=== PATIENT | female | born 1950 | race Caucasian/White ===

== ENCOUNTER 2022-11-10 07:27 | Day surgery (SDC) | payer MEDICARE, SELFPAY ==
--- NOTE | 2022-11-09 19:19 | HPE_ITS ---
Assessment and Plan Assessment and plan (1) Nuclear age-related cataract, right eye: Status: Acute Assessment and plan: Assessment: Visually significant cataract of the right eye. Plan: Cataract extraction with lens implantation of the right eye. (2) Cortical age-related cataract, right eye: Status: Acute Assessment and plan: Assessment: Visually significant cataract of the right eye. Plan: Cataract extraction with lens implantation of the right eye History of Present Illness History of Present Illness Chief Complaint: Progressive decreased vision, right eye Narrative: The patient is a 71-year-old lady with history of progressive decreased vision in both eyes at both distance and near. She had a previous stroke with resulting visual field loss. She developed significant bilateral nuclear and cortical cataracts. She was significantly symptomatic from her cataract that she desired cataract surgery and attempt to improve and maximize her vision. She has already undergone cataract surgery in the left eye on 11/01/2022. Postoperatively, she has regained uncorrected visual acuity of 20/25 in the left eye. She now presents for cataract surgery in the right eye. Review of Systems All systems reviewed & are unremarkable except as noted in HPI and below PFSH All Active Problems Nuclear age-related cataract, right eye (Acute) Cortical age-related cataract, right eye (Acute) Medical History Anxiety and depression Cataract Centrilobular emphysema Chronic pain COPD (chronic obstructive pulmonary disease) Fractured pelvis Hypertension Impaired gait and mobility Mixed hyperlipidemia Onychomycosis Opioid dependence with physiological dependence Oxygen dependent Peripheral edema PTSD (post-traumatic stress disorder) Xerosis cutis Surgical History H/O total hip arthroplasty Bilat History of back surgery back surgery r/t broken back x2 History of cataract surgery History of colonoscopy Social History Smoking/Tobacco Use Status: Former Tobacco Use Tobacco: How many years used: 20 Smoking risk assessment performed?: Yes Alcohol Intake: current Alcohol Intake frequency: a few times a week Alcohol type: wine Drug use: Never Substance use type: prescription drug Details: prescribed hydrocodone/acetaminophen Do you feel safe at home: No Do you feel safe in your relationship?: No Additional Social history: lives alone Meds Allergies and Home Medications Allergies Allergy/AdvReac Type Severity Reaction Status Date / Time No Known Allergies Allergy Unverified 11/10/22 08:07 Home Medications Medication Instructions Recorded Confirmed Type aspirin 81 mg tablet,delayed 81 mg PO DAILY 11/09/22 11/10/22 History release calcium carb-vit D3-minerals 600 1 tab PO DAILY 11/09/22 11/10/22 History mg calcium-200 unit tablet citalopram 40 mg tablet 40 mg PO DAILY 11/09/22 11/10/22 History fluticasone furoate 100 1 inh inhalation DAILY 11/09/22 11/10/22 History mcg/actuation blister powder for inhalation furosemide 40 mg tablet 40 mg PO DAILY 11/09/22 11/10/22 History hydrocodone 10 mg-acetaminophen 1 tab PO Q6H PRN 11/09/22 11/10/22 History 325 mg tablet ibuprofen 800 mg tablet 800 mg PO TID PRN 11/09/22 11/10/22 History ketoconazole 2 % topical cream 1 applic topical BID 11/09/22 11/10/22 History lovastatin 40 mg tablet 40 mg PO QPM 11/09/22 11/10/22 History potassium chloride 20 mEq 20 meq PO BID 11/09/22 11/10/22 History tablet,extended release tizanidine 4 mg capsule 4 mg PO QHS PRN 11/09/22 11/10/22 History trazodone 100 mg tablet 100 mg PO QHS PRN 11/09/22 11/10/22 History triamterene 37.5 1 cap PO DAILY 11/09/22 11/10/22 History mg-hydrochlorothiazide 25 mg capsule Exam Eyes Other: Most recent ocular examination revealed corrected visual acuity of 20/30 in the right eye, uncorrected 20/25 in the left eye. Extraocular motility is normal. Intraocular pressure is 14 OD, 12 OS. Slit-lamp examination reveals a well- positioned PCIOL OS with clear posterior capsule. The right eye has mild cortical with moderate nuclear cataract. Funduscopic examination shows disc cupping of 0.2 OU with normal vessels, macula, peripheral retina and vitreous. Resp Auscultation: clear to auscultation bilaterally Cardio Rate: regular rate Rhythm: regular rhythm
[2022-11-10] MEDS: Tropicam./Phenyleph. (1/2.5%) 5 ML BTL OD ×3 (08:10→08:23)
[2022-11-10 08:14] VITALS: BP 114/60; PULSE 64; RESP 20; TEMP 36.4; O2SAT 96
--- NOTE | 2022-11-10 08:30 | ANES.PREOP_ITS ---
General Info Date of Service Date Performed: 11/10/22 Height: 5 ft 4 in Weight: 83.915 kg Body Mass Index (BMI): 31.7 Surgical Procedure: Operation Date: 11/10/22 09:10 Proposed Procedure Side Surgeon p Cataract Extraction with IOL Implant Right Aram Hankins MD Meds Allergies and Home Medications Allergies Allergy/AdvReac Type Severity Reaction Status Date / Time No Known Allergies Allergy Unverified 11/10/22 08:07 Home Medication Medication Instructions Recorded aspirin 81 mg tablet,delayed 81 mg PO DAILY 11/09/22 release calcium carb-vit D3-minerals 600 1 tab PO DAILY 11/09/22 mg calcium-200 unit tablet citalopram 40 mg tablet 40 mg PO DAILY 11/09/22 fluticasone furoate 100 1 inh inhalation DAILY 11/09/22 mcg/actuation blister powder for inhalation furosemide 40 mg tablet 40 mg PO DAILY 11/09/22 hydrocodone 10 mg-acetaminophen 1 tab PO Q6H PRN 11/09/22 325 mg tablet ibuprofen 800 mg tablet 800 mg PO TID PRN 11/09/22 ketoconazole 2 % topical cream 1 applic topical BID 11/09/22 lovastatin 40 mg tablet 40 mg PO QPM 11/09/22 potassium chloride 20 mEq 20 meq PO BID 11/09/22 tablet,extended release tizanidine 4 mg capsule 4 mg PO QHS PRN 11/09/22 trazodone 100 mg tablet 100 mg PO QHS PRN 11/09/22 triamterene 37.5 1 cap PO DAILY 11/09/22 mg-hydrochlorothiazide 25 mg capsule Current Visit Medications: Current Medications Generic Name Dose Route Start Last Admin Trade Name Freq PRN Reason Stop Dose Admin Acetaminophen 1,000 mg 11/10/22 06:00 Acetaminophen 500 Mg Tab PO 12/10/22 05:59 Q4H PRN PRN Balanced Salt Solution 500 ml 11/10/22 06:00 Balanced Salt Soln.-Plus 500 Ml Bag OP 12/10/22 05:59 DIRECTED CHANDAN Miscellaneous Medication 0 ml 11/10/22 06:00 Prednisolone 1%, Moxifloxacin 0.5%, Nepafenac 0.1% 5ml Btl OD 12/10/22 05:59 DIRECTED CHANDAN Miscellaneous Medication 0 ml 11/10/22 06:00 11/10/22 08:10 Tropicam./Phenyleph. (1/2.5%) 5 Ml Btl OD 12/10/22 05:59 1 drp DIRECTED CHANDAN Administration Tetracaine HCl 0 ml 11/10/22 06:00 Tetracaine 0.5% 4 Ml Btl OD 12/10/22 05:59 DIRECTED CHANDAN PFSH Active Problems Active Problems: Problem Status Onset Code Nuclear age-related cataract, right eye H25.11 Cortical age-related cataract, right eye H25.011 Medical History Medical History Anxiety and depression Cataract Centrilobular emphysema Chronic pain COPD (chronic obstructive pulmonary disease) Fractured pelvis Hypertension Impaired gait and mobility Mixed hyperlipidemia Onychomycosis Opioid dependence with physiological dependence Oxygen dependent Peripheral edema PTSD (post-traumatic stress disorder) Xerosis cutis Surgical History Surgical History H/O total hip arthroplasty Bilat History of back surgery back surgery r/t broken back x2 History of cataract surgery History of colonoscopy Tobacco Smoking/Tobacco Use Status: Former Tobacco Use Alcohol Alcohol Intake: current Alcohol intake frequency: a few times a week Alcohol type: wine Substance Use Substance use: Never Substance use type: prescription drug Details: prescribed hydrocodone/acetaminophen Vital Signs and Lab Results Vital Signs Most Recent Vital Signs in EMR: Most Recent Vital Signs Temp Pulse Resp BP Pulse Ox 36.4 C L 64 20 114/60 96 11/10/22 08:14 11/10/22 08:14 11/10/22 08:14 11/10/22 08:14 11/10/22 08:14 Lab Results Blood Type / Crossmatch: No Data to Display Complete Blood Count: No Data to Display Complete Metabolic Panel: No Data to Display Liver Function Panel: No Data to Display Coagulation Panel: No Data to Display Cardiac Panel: No Data to Display Arterial Blood Gas: No Data to Display Venous Blood Gas: No Data to Display Pancreas Panel: No Data to Display Thyroid Panel: 2 No Data to Display Infectious Disease: No Data to Display Blood Cultures: No Data to Display Toxicology Panel: No Data to Display Anesthesia Assessment and Plan Anesthesia History Personal History: No History of Anesthesia Complications Family History: No Family History of Anesthesia Complications Exercise Tolerance Exercise Tolerance: Metabolic Equivalents>4 Pertinent Negatives Pertinent Negatives: No Symptoms of GERD, No Major Cardiovascular Symptoms or Complaints and No Major Pulmonary Symptoms or Complaints Cardiac & Pulmonary Exam Cardiac Exam: Normal S1/S2 Heart Sounds Pulmonary Exam: Clear Bilateral Breath Sounds Implantable Cardiac Device Does patient have a Pacemaker or an ICD?: No Airway Exam Known Difficult Airway: No Mallampati Class: 3 Mouth Opening: Normal (> 3cm) Thyromental Distance: Greater than 3 cm Neck Range of Motion: Full ROM Neck Circumference: Normal Teeth Condition: Generalized Poor Dentition (bottom) and Removable Dentures/Plates Upper ASA Classification ASA Score: ASA 4 Emergency Case?: No NPO Status NPO Status: NPO Clears >2 hours, Solids >8 hours Anesthesia Plan Resuscitation Status: Full Code Anesthesia Technique: MAC Anesthesia Airway Planned: Natural Airway Monitors Used: Standard Monitors
[2022-11-10 09:06] VITALS: BMI 31.7
[2022-11-10] MEDS: Balanced Salt Soln.-PLUS 500 ML BAG OP (09:27)
[2022-11-10] MEDS: Lidocaine 1% Pres-Free 5 ML VIAL (09:28)
[2022-11-10] MEDS: Tetracaine 0.5% 4 ML BTL OD (09:29)
[2022-11-10] MEDS: Duovisc Viscoelastic System EACH 1 EACH (09:30)
[2022-11-10] MEDS: Povidone-Iodine Ophth 30 ML BTL (09:30)
[2022-11-10] MEDS: Phenylephrine/Lidocaine (15/10) MG/ML 1 ML VIAL (09:30)
[2022-11-10 09:41] VITALS: BP 121/53; PULSE 69; RESP 18; TEMP 36.2; O2SAT 97
--- NOTE | 2022-11-10 09:41 | W.PM.DSUDISC ---
Date of service: 11/10/22 Time of Service: 09:41 Discharge Plan Disposition Patient Disposition: Home Discharge Details Attending Provider: Aram Hankins Primary Care Provider: Amarjit Morgan Home Meds and New Rx's Prescriptions: No Action furosemide 40 mg Tablet 40 mg PO DAILY citalopram 40 mg Tablet 40 mg PO DAILY ibuprofen 800 mg Tablet 800 mg PO TID PRN lovastatin 40 mg Tablet 40 mg PO QPM hydrocodone-acetaminophen 10-325 mg Tablet 1 tab PO Q6H PRN aspirin [Aspir-81] 81 mg Tablet,Delayed Release (Dr/Ec) 81 mg PO DAILY triamterene-hydrochlorothiazid 37.5-25 mg Capsule 1 cap PO DAILY trazodone 100 mg Tablet 100 mg PO QHS PRN ketoconazole 2 % Cream 1 applic TOPICAL BID tizanidine 4 mg Capsule 4 mg PO QHS PRN calcium carbonate-vit D3-min 600 mg calcium- 200 unit Tablet 1 tab PO DAILY potassium chloride 20 mEq Tablet Extended Release 20 meq PO BID fluticasone furoate 100 mcg/actuation Blister With Device 1 inh INHALATION DAILY Discharge Instructions Stand Alone Forms: Post-op Topical Cataract, Lena White (DSU) Discharge Orders Discharge Orders: Discharge Order (Routine); Ordered 11/10/22 Ordered By: Aram Hankins DS: Diagnosis Discharge Diagnosis (1) Nuclear age-related cataract, right eye: Status: Resolved (2) Cortical age-related cataract, right eye: Status: Resolved
--- NOTE | 2022-11-10 09:43 | ROE_ITS ---
Date of service: 11/10/22 Time of Service: 09:43 Operative Note Operative Note DATE OF PROCEDURE: 11/10/22 PRE-OP DIAGNOSIS: Nuclear/cortical cataract, right eye POST-OP DIAGNOSIS: same PROCEDURE: Cataract extraction using phacoemulsification with intraocular lens implant, right eye SURGEON: Aram Hankins ANESTHESIA TYPE: Local By Surgeon and MAC Refer to Anesthesia Record ESTIMATED BLOOD LOSS: 0 PATHOLOGY: none sent COMPLICATIONS: None Patient was transported to: same day Patient's condition: stable Implants: Chad [employer] Chad [employer]nis Eyhance [id number] Indications: Progressive visual loss due to cataract, right eye Procedure Description: CATARACT SURGERY OPERATIVE REPORT PREOPERATIVE DIAGNOSIS: 1. Nuclear/cortical cataract, right eye POSTOPERATIVE DIAGNOSIS: Same OPERATION: 1. Cataract extraction using phacoemulsification with posterior chamber intraocular lens implant, right eye. IOL: IOL Table Top Tile Setter/Model: Chad [employer] Chad Tecnis Eyhance DIB00 IOL Power: + 23.5 diopters IOL Serial Number: [id number] Optic Diameter: 6.0mm Haptic/Overall Diameter: 13.0mm PHACO INFO: To KAI Squareurion Vision System with OZil and Active Fluidics Cumulative Dispersed Energy (CDE): 5.72 seconds SURGEON: Aram Hankins MD, LIZZIE ANESTHESIA: Monitored Anesthesia Care (MAC), with local sub-tenon's anesthetic infiltration COMPLICATIONS: None SPECIMENS: None INDICATIONS FOR PROCEDURE: The patient is a 72-year-old lady with history of diminished visual acuity in her right eye secondary to the development of nuclear/cortical cataract. She has recently undergone cataract surgery in her left eye and is doing well postoperatively. She now presents for cataract surgery in the right eye. See office notes for detailed information. PROCEDURE: The correct surgical eye was identified and marked as the right eye and the pupil was dilated in the preoperative area using mydriatics and cycloplegics. The dilated pupil size was 7.0 mm. The patient elected to proceed without oral sedation. The patient was brought to the operating room where cardiopulmonary monitoring was instituted and surgical time-out was performed, confirming the correct operative eye and IOL power. Topical anesthesia was administered and ophthalmic povidone-iodine 5% was instilled into the conjunctival fornices. The robert-ocular area was prepped with Betadine 10% solution and draped in the usual sterile fashion for intraocular surgery, including an aperture drape. A Tegaderm transparent film dressing was cut in half and used to cover the lashes and lid margins. Care was taken to sequester the lashes and lid margins under the Tegaderm dressing. A lid speculum was placed between the lids of the operative eye and the To [employer] Revalia operating microscope was maneuvered into position. Yesica scissors were then used to make a conjunctival buttonhole approximately 6mm posterior to the limbus in the inferonasal quadrant. Blunt dissection was carried out to expose bare sclera, and a blunt-tipped sub-tenon?s anesthesia can nula was introduced and passed posteriorly along the globe where non-preserved plain lidocaine was injected into posterior sub-Tenon?s space. A sideport knife was used to make a paracentesis port. Intraocular phenylephrine/lidocaine was injected into the anterior chamber. The anterior chamber was filled with viscoelastic. A keratome knife was used to construct a 2-plane clear corneal tunnel extending 2.0mm into clear cornea. A flap was raised on the anterior capsule and capsulorhexis forceps were used to complete a continuous curvilinear capsulorhexis of 5.5 mm. Balanced salt solution was then used to perform cortical cleaving hydrodissection and nuclear hydrodelineation until the lens could be freely rotated within the capsular bag. The lens nucleus was then disassembled and removed within the capsular bag and iris plane using phacoemulsification. Residual cortical material was removed using the I/A handpiece. The posterior capsule was carefully polished to remove as much residual lens epithelial cells as safely possible. The capsular bag was then inflated and the anterior chamber deepened with cohesive viscoelastic. The lens implant described above was inserted into the capsular bag using the Chad and Geovanni Simplicity pre- loaded injector. A Kuglen hook was used to dial the IOL into position. Residual viscoelastic was then removed first from posterior to the IOL, then from the anterior chamber using the I/A handpiece. The lens implant was noted to center nicely within the capsular bag. The incisions were stromally hydrated, and the anterior chamber was reformed using BSS. Then 0.5cc of moxifloxacin 1.0mg/ml were injected into the capsular bag and anterior chamber. The incisions were checked with a Weck spear and found to be secure. Several drops of ophthalmic povidone-iodine 5% were then applied to the eye followed by two drops of Imprimis combination prednisolone/moxifloxacin/nepafenac solution. The drapes were removed and a clear plastic protective eye shield was placed over the eye. The patient was then returned to Same Day Surgery in stable condition.
--- NOTE | 2022-11-10 10:20 | W.ANESPOSTOP ---
Postoperative Evaluation Date, Time and Location Date Performed: 11/10/22 Time Performed: 09:50 Patient Location: Day Surgery Unit Vital Signs Most Recent Imported Vital Signs: Most Recent Vital Signs Temp Pulse Resp BP Pulse Ox 36.2 C L 69 18 121/53 L 97 11/10/22 09:41 11/10/22 09:41 11/10/22 09:41 11/10/22 09:41 11/10/22 09:41 Pain Score Most Recent Pain Score: Most Recent Pain Score Pain Level 0 11/10/22 09:41 Assessment Mental Status: Awake (Alert & Oriented to Patient Baseline) Airway and Respiratory Function: Patent airway with normal (patient baseline) respiratory exam Cardiovascular Function: Hemodynamically Stable Hydration Status: Adequately Hydrated Nausea & Vomiting: No Nausea or Vomiting Pain: Pt. Denies Any Pain Peripheral Nerve Block: Patient did not receive a nerve block
== END 2022-11-10 09:59 | disposition home or self-care (01) ==
PROVIDERS: PCP Nurse Practitioner; Visit Provider Ophthalmology
PROC: (CPT 66984; principal; 2022-11-10 09:00)
DX: H25.11 Age-related nuclear cataract, right eye (principal); H25.011 Cortical age-related cataract, right eye; Z98.42 Cataract extraction status, left eye; J44.9 Chronic obstructive pulmonary disease, unspecified; I10 Essential (primary) hypertension; Z99.81 Dependence on supplemental oxygen
CPT/HCPCS: 66984; V2632